=== PATIENT | male | born 1960 | race Caucasian/White ===

== ENCOUNTER → 2020-12-10 | Outpatient (CLI) | payer OTHER | LOC: EMI 14:25 | DX: R26.0 Ataxic gait (principal); R20.8 Other disturbances of skin sensation; Z86.69 Personal history of other diseases of the nervous system and sense organs; G50.0 Trigeminal neuralgia; G35 Multiple sclerosis; R27.8 Other lack of coordination; R94.02 Abnormal brain scan | CPT/HCPCS: 70553; A9577 ==